=== PATIENT | male | born 1960 | race Two or more races ===

== ENCOUNTER 2024-12-01 09:10 | Emergency (ER) | payer MEDICARE, SELFPAY ==
[2024-12-01 09:35] VITALS: BP 127/88; PULSE 90; RESP 19; TEMP 36.6; O2SAT 97; BMI 26.3
--- NOTE | 2024-12-01 09:38 | XR_ITS ---
Examination: Testicular sonography complete TECHNIQUE: Grayscale sonographic images testes, assessment arterial inflow venous outflow Doppler spectral analysis carful analysis Exam date and time: December 01, 2024 1001 hours INDICATIONS: Left testicular swelling and pain beginning months ago more severe the last week FINDINGS: Right testis 4.4 cm epididymis 1.5 cm Arterial flow testicle No testicular mass Minimal hydrocele Left testis 4.5 cm epididymis 14 mm Arterial flow testicle. No testicular mass Severe left hydrocele IMPRESSION: No testicular torsion or testicular mass Severe left hydrocele
--- NOTE | 2024-12-01 09:39 | PD.EDRME ---
Rapid Medical Screening Exam E Arrival date/time: 12/01/24 09:10 64-year-old male with no known medical history presents to the emergency room with a chief complaint of left-sided testicular swelling and pain that has gotten worse in the last week. Patient denies any dysuria or hematuria. I have greeted and performed a focused initial assessment of this patient. A comprehensive ED assessment and evaluation of the patient, analysis of all test results, and completion of the medical decision making process will be conducted by additional ED providers. Chief Complaint: Urogenital-Male Vital signs: Vital Signs Temperature 97.9 F 12/01/24 09:35 Pulse Rate 90 12/01/24 09:35 Respiratory Rate 19 12/01/24 09:35 Blood Pressure 127/88 H 12/01/24 09:35 Pulse Oximetry (%) 97 12/01/24 09:35 Oxygen Delivery Method Room Air 12/01/24 09:35 Vital signs reviewed by provider: Yes
[2024-12-01 10:15] LABS: Basophils # (Auto) 0.1 Thou/mm3 (0.0-0.2); Basophils % (Auto) 1 % (0-2.5); Eosinophils # (Auto) 0.3 Thou/mm3 (0.0-0.5); Eosinophils % (Auto) 3 % (0-10); Hematocrit 49.4 % (41.0-53.0); Hemoglobin 16.5 g/dL (13.5-16.0); Immature Granulocytes % (Auto) 0 % (0-0); Immature Granulocytes Auto 0.04 Thou/mm3 (0.00-0.00); Lymphocytes % (Auto) 32 % (10-50); Mean Corpuscular HGB Conc 33.4 g/dl (31.0-37.0); Mean Corpuscular Hemoglobin 29.6 pg (25.0-35.0); Mean Corpuscular Volume 89 fL (80-100); Monocytes # (Auto) 0.5 Thou/mm3 (0.0-0.8); Monocytes % (Auto) 6 % (0-12); Neutrophils # (Auto) 5.3 Thou/mm3 (1.8-7.7); Neutrophils % (Auto) 58 % (37-80); Nucleated Red Blood Cell % 0 /100 WBC (0); Platelet Count 213 Thou/mm3 (140-440); RDW Standard Deviation 39.9 fL (35.1-43.9); Red Blood Count 5.58 Miln/mm3 (4.50-5.90); White Blood Count 9.2 Thou/mm3 (3.8-10.6)
[2024-12-01 10:32] LABS: Alanine Aminotransferase 22 U/L (10-49); Albumin, Serum 4.7 gm/dL (3.4-4.8); Albumin/Globulin Ratio 1.5 (1.2-2.2); Alkaline Phosphatase 108 U/L (46-116); Anion Gap 11 (7-16); Aspartate Amino Transferase 22 U/L (0-34); BUN/Creatinine Ratio 15 Ratio (12-20); Bilirubin,Total 0.7 mg/dL (0.3-1.2); Blood Urea Nitrogen 12 mg/dL (9-23); Calcium 9.8 mg/dL (8.3-10.6); Calcium (Corrected) 9.8 mg/dL (8.5-10.1); Carbon Dioxide 22.7 mMol/L (20.0-31.0); Chloride 106 mMol/L (98-107); Creatinine (Component) 0.8 mg/dL (0.6-1.3); Estimated Creatinine Clearance 84.9 mL/min (>60); Globulin 3.1 gm/dL (2.3-3.5); Glucose 99 mg/dL (74-106); Osmolality,Calculated 279 (275-295); Sodium 140 mMol/L (136-145); Total Protein 7.8 gm/dL (5.7-8.2); eGFR > 60 See Note
[2024-12-01 11:10] LABS: Collection Type, Urine Clean Catch
[2024-12-01 11:19] LABS: Bilirubin,Urine Negative (Negative); Blood,Urine Trace (Negative); Clarity,Urine Clear (Clear/Hazy); Color,Urine Lt-Yellow (Lt Yel-Yel); Culture Indicated,Urine Not Indicated; Glucose, Urine Negative (Negative); Ketones,Urine Negative (Negative); Leukocyte Esterase,Urine Negative (Negative); Nitrite,Urine Negative (Negative); PH,Urine 5.5 (5.0-7.0); Protein,Urine Trace (Neg - Trace); RBC,Urine 1 /hpf (0-3); Specific Gravity,Urine 1.024 (1.001-1.035); Squamous Epithelial Cell,Urine < 1 /hpf (0-5); Urobilinogen,Urine Negative mg/dL (0.0-1.0); WBC,Urine 1 /hpf (0-5)
[2024-12-01 14:47] VITALS: BP 130/85; PULSE 60; RESP 18; TEMP 36.4; O2SAT 95
--- NOTE | 2024-12-01 16:56 | EDNOTE_ITS ---
ED General RME/HPI General Chief complaint: Urogenital-Male Stated complaint: LEFT TESTICULAR INFLAMMATION Time Seen by Provider: 12/01/24 16:42 Arrival date/time: 12/01/24 09:10 CC: Left testicular pain x 1 week with swelling. Denies any penile discharge or hematuria dysuria. No prior history of similar events no OTC medicines taken denies any fever chills chest pain shortness of breath difficulty breathing. RME / HPI RME / HPI narrative: 12/01/24 09:10 64-year-old male with no known medical history presents to the emergency room with a chief complaint of left-sided testicular swelling and pain that has gotten worse in the last week. Patient denies any dysuria or hematuria. I have greeted and performed a focused initial assessment of this patient. A comprehensive ED assessment and evaluation of the patient, analysis of all test results, and completion of the medical decision making process will be conducted by additional ED providers. Related Data Previous Rx's ?Medication ?Instructions ?Recorded meloxicam 7.5 mg tablet 7.5 mg PO QDAY #10 tabs 12/23 Allergies Allergy/AdvReac Type Severity Reaction Status Date / Time No Known Allergies Allergy Verified 12/01/24 09:11 Review of Systems Review of Systems Narrative Review of Systems: GEN: No fever, no chills, no weight loss EYES: No discharge, no visual changes, no pain HEENT: No ear pain, no congestion, no sore throat PULM: No shortness of breath, no cough, no congestion CV: No chest pain, no dyspnea on exertion, no palpitations GI: No nausea, no vomiting, no diarrhea, no pain, no constipation : No frequency, no urgency, no dysuria MUSC/SKEL: No joint pain, no back pain SKIN: No rash PSYCH: No hallucinations, no depression HEME/LYMPH: No easy bleeding or bruising tendencies NEURO: No weakness, no headache Past Medical History Social History SMOKING STATUS: Never smoker ED Exam Narrative Physical exam: [General: Not in any acute distress Head normocephalic HEENT: Within acceptable limits Neck is supple nontender Chest equal chest rise nontender to palpation Respiratory: Clear to auscultation no wheezes crackles or rubs CV: Rate rhythm is regular no murmurs rubs or clicks Abdomen is flat, soft nontender no masses positive bowel sounds all 4 quadrants , scrotum: Scrotum is enlarged on the left side of firm testes, no surrounding erythema or edema right side is normal sized freely mobile testicle. Penis no discharge from the meatus. Back: No CVA tenderness no spinous process tenderness from cervical spine thoracic and lumbar spine Skin: Intact no petechiae rash induration ulceration or crepitus Extremities: Moving all extremity against resistance cap refill less than 2 seconds neurosensory intact Neuro: Awake alert oriented x3 Glascow coma 15 no focal deficits] Course Quality Measures none Orders Category Date Time Status US testicular Stat Exams 12/01/24 09:38 Completed CBC Stat Lab 12/01/24 09:45 Completed CMP [Comprehensive Metabolic Panel] Stat Lab 12/01/24 09:45 Completed UA, C/S IF [Urinalysis, C/S if Indicated] Stat Lab 12/01/24 10:32 Completed Vital Signs Vital signs: Vital Signs Temperature 97.9 F 12/01/24 09:35 Pulse Rate 90 12/01/24 09:35 Respiratory Rate 19 12/01/24 09:35 Blood Pressure 127/88 H 12/01/24 09:35 Pulse Oximetry (%) 97 12/01/24 09:35 Oxygen Delivery Method Room Air 12/01/24 09:35 MDM Patient data External records reviewed:: [facility] previous records Clinical information provided by:: patient Social determinants that could affect healthcare access:: none Patient has the following chronic illnesses:: None How is presenting disease/condition affected by chronic disease/condition?: u neffected by Evaluation data The following diagnostics were reviewed and interpreted by me:: lab results and radiology exam(s) Lab and/or radiology exams considered but not ordered:: Ultrasound shows a large left hydrocele CBC showed no acute leukocytosis anemia thrombocytopenia CMP shows no significant electrolyte imbalances renal impairment transaminitis or T. bili elevation Urine is negative for any UTI. Interpretation Summary: Hydrocele Medications Medications considered but not ordered:: None Medication administrations:: None Consultations Consultation(s) initiated? (list below): No Diagnosis Differential Diagnosis ED Complaint MDM: Hydrocele epididymitis orchitis Most likely diagnosis given after review of the tests above:: Left hydrocele Admission Indicated Admission indicated?: not indicated Explain why admission is indicated or not indicated:: Stable for outpatient follow-up Admission Request Was there a request for admission?: No Disposition Plan Disposition Plan: Discharge Discharge Attestation Discharge Attestation: The patient and all family members were given an opportunity to ask questions and understood the discharge instructions. Discharge instructions specifically effects, indications for sooner follow up or return to the emergency department, and the expected course of current diagnosis. Patient condition: Stable Medical Decision Making Differential Diagnosis Differential Diagnosis: Hydrocele epididymitis orchitis Lab Data 12/01/24 09:45 12/01/24 09:45 Labs: Lab Results 12/01/24 12/01/24 Range/Units 09:45 10:32 WBC 9.2 (3.8-10.6) Thou/mm3 RBC 5.58 (4.50-5.90) Miln/mm3 Hgb 16.5 H (13.5-16.0) g/dL Hct 49.4 (41.0-53.0) % MCV 89 (80-100) fL MCH 29.6 (25.0-35.0) pg MCHC 33.4 (31.0-37.0) g/dl RDW Std Deviation 39.9 (35.1-43.9) fL Plt Count 213 (140-440) Thou/mm3 Neut % (Auto) 58 (37-80) % Lymph % (Auto) 32 (10-50) % [place] % (Auto) 6 (0-12) % Eos % (Auto) 3 (0-10) % Baso % (Auto) 1 (0-2.5) % Neut # (Auto) 5.3 (1.8-7.7) Thou/mm3 Lymph # (Auto) 3.0 (1.0-4.8) Thou/mm3 [place] # (Auto) 0.5 (0.0-0.8) Thou/mm3 Eos # (Auto) 0.3 (0.0-0.5) Thou/mm3 Baso # (Auto) 0.1 (0.0-0.2) Thou/mm3 Immature Gran # (Auto) 0.04 H (0.00-0.00) Thou/mm3 Absolute Nucleated RBC 0.00 (0.00-0.00) Thou/mm3 Immature Gran % 0 (0-0) % Nucleated RBC % 0 (0) /100 WBC Sodium 140 (136-145) mMol/L Potassium 4.0 (3.4-5.1) mMol/L Chloride 106 (98-107) mMol/L Carbon Dioxide 22.7 (20.0-31.0) mMol/L Anion Gap 11 (7-16) BUN 12 (9-23) mg/dL Creatinine 0.8 (0.6-1.3) mg/dL Estim Creat Clear Calc 84.9 (>60) mL/min eGFR > 60 (60 - ) See Note BUN/Creatinine Ratio 15 (12-20) Ratio Glucose 99 (74-106) mg/dL Calculated Osmolality 279 (275-295) Calcium 9.8 (8.3-10.6) mg/dL Corrected Calcium 9.8 (8.5-10.1) mg/dL Total Bilirubin 0.7 (0.3-1.2) mg/dL AST 22 (0-34) U/L ALT 22 (10-49) U/L Alkaline Phosphatase 108 (46-116) U/L Total Protein 7.8 (5.7-8.2) gm/dL Albumin 4.7 (3.4-4.8) gm/dL Globulin 3.1 (2.3-3.5) gm/dL Albumin/Globulin Ratio 1.5 (1.2-2.2) Ur Collection Type Clean Catch Urine Color Lt-Yellow (Lt Yel-Yel) Urine Clarity Clear (Clear/Hazy) Urine pH 5.5 (5.0-7.0) Ur Specific [place] 1.024 (1.001-1.035) Urine Protein Trace (Neg - Trace) Urine Glucose (UA) Negative (Negative) Urine Ketones Negative (Negative) Urine Blood Trace (Negative) Urine Nitrite Negative (Negative) Urine Bilirubin Negative (Negative) Urine Urobilinogen (Auto) Negative (0.0-1.0) mg/dL Ur Leukocyte Esterase Negative (Negative) Urine RBC 1 (0-3) /hpf Urine WBC 1 (0-5) /hpf Ur Squamous Epith Cells < 1 (0-5) /hpf Urine Bacteria None (None) Ur Culture Indicated? Not Indicated Discharge Plan Plan Patient Disposition: HOME (Self Care) Patient condition on transfer: Stable Prescriptions/Referrals Prescriptions/Med Rec: New meloxicam 7.5 mg tablet 7.5 mg PO QDAY Qty: 10 0RF Referrals: Ren Lo MD [Primary Care Provider] - In 1 week Problem List Clinical Impression: Hydrocele in adult Patient/Caregiver Discharge Instructions Other Activity Instructions:: When you sleep on your back keep us washcloth underneath your scrotum for elevation of the scrotum. Education Materials: ED Hydrocele, Type Not Specified Print Language: Telugu Stand Alone Forms: Alicia Award Info., Patient Portal Info Letter, Work/School Release PA/BODY WORK [employer] Supervising Physician PA/BODY WORK [employer] Supervising Physician: Bon Gordon ENP
== END 2024-12-01 17:41 | disposition home or self-care (01) ==
PROVIDERS: Nurse Practitioner Family; Emergency Provider Emergency Medicine; PCP Internal Medicine
DX: N43.3 Hydrocele, unspecified (principal)
CPT/HCPCS: 36415; 76870; 80053; 81001; 85025; 99284